=== PATIENT | female | born 1980 | race Caucasian/White ===

== ENCOUNTER → 2016-07-30 | Outpatient (CLI) | payer OTHER ==
[~2016-07-30] MED LIST: CYCL10TA2 PO; FLUT9.9S NS; IBUP-1060 PO; LORA10TA68 PO; MONT10TA9 PO; PROAIR HFA8.5 GM INH; ZOLP5TAB PO
--- NOTE | 2016-07-30 10:12 | KCIC ---
Foot left, three views Indication: Left foot pain and bruising, post fall. Time of exam 9:56 a.m. The metatarsals are intact. The phalanges appear intact. The midfoot and hindfoot are unremarkable apart from a large plantar calcaneal spur. There is some dorsal soft tissue swelling present. Impression: Soft tissue swelling. No acute bony abnormality is detected. Electronically signed by: Reji Conn MD (Jul 30, 2016 10:11:06)
== END | disposition home or self-care (01) ==
LOC: KCIC 09:45
PROVIDERS: ATTEND Nurse Practitioner Family
DX: M79.672 Pain in left foot (principal); S90.32XA Contusion of left foot, initial encounter; W19.XXXA Unspecified fall, initial encounter; Y93.89 Activity, other specified; Y92.89 Other specified places as the place of occurrence of the external cause; Y99.8 Other external cause status
CPT/HCPCS: 73630

== ENCOUNTER → 2016-09-09 | Outpatient (CLI) | payer OTHER ==
[~2016-09-09] MED LIST changes: +CHOL10007 PO; +IOHEXOL 180 MG/ML 10 ML VIAL. ONE; +MULT-208 PO; +methylPREDNISolone ACETATE 40 MG/ML VIAL. ONE; +methylPREDNISolone ACETATE 80 MG/ML VIAL. ONE
--- NOTE | 2016-09-10 03:31 | PAIN ---
DATE OF SERVICE: 09/09/2016 PROGRESS NOTE FOR PAIN CLINIC DIAGNOSES: Lumbar radiculopathy with lumbar herniated disk. HISTORY OF PRESENT ILLNESS: The patient is a 36-year-old female, who returns for followup, last seen on 11/2015. The patient did very well after 2 lumbar epidural steroid injections about ____ improvement. The patient reports that the pain has been returning now for few months. She has been putting off having any treatment done, but is becoming more and more painful as she fell down some stairs, landed on her left hip on the steps about 2 weeks ago. The patient reports that since that time, she has been dragging her left foot. She has been having more pain, difficulty sleeping at night and returns today for followup. The patient reports the pain 8 on a scale of 10 is worse as least at 5, aching, sharp, dull, shooting radiating constant, stabbing and unbearable at times in the low back, left leg, posterior gluteus, posterior lateral thigh, posterior lower leg to the ankle on the left side and some of the right gluteus and across the low back. The patient reports no new motor or sensory deficits, no new bowel or bladder incontinence, but still significant pain. PHYSICAL EXAMINATION: VITAL SIGNS: The patient's blood pressure is 139/100, pulse 94, respirations 18, temperature is 97.6 degrees Fahrenheit, height is 5 feet 9 inches, weight is 233 pounds. GENERAL: The patient is awake, alert, oriented, appropriate, very pleasant demeanor. HEENT: Head shows normocephalic, atraumatic. Extraocular movements are intact and symmetrical. Oral cavity shows mucous membranes moist and pink. Dentition is intact. NECK: Shows anterior throat supple without palpable lymphadenopathy noted. Swallow reflex is symmetrical. CHEST: Shows normal on inspection. Breath sounds are clear to auscultation bilaterally. HEART: Shows S1 and S2 clear. ABDOMEN: Soft, nontender, nondistended. No palpable organomegaly. No rebound or guarding demonstrated. BACK: The patient's back shows spine grossly in midline. The patient's back shows lumbar paraspinous musculature is symmetrical in appearance without atrophy, hypertrophy. The patient does show some moderate tenderness with palpation only in the lower lumbar distribution bilaterally, but diffusely. No tenderness over the sacrum or sacroiliac regions over the spinous processes. The patient shows good rotation and motion of the lumbar spine, both laterally greater than 10 degrees right and left as well as extension greater than 10 degrees, forward flexion 45 degrees without significant difficulty. LOWER EXTREMITIES: Showed deep tendon reflexes at 2+, patellar 1+, tendo-calcaneus tendons are equal. Motor exam is strong with 5/5 dorsiflexion, extension, quadriceps and hamstring flexion and symmetrical. Options were discussed with the patient and the patient's old chart was reviewed as her current medication regimen updated. Current review of systems updated today as well and will proceed with lumbar epidural steroid injections done very well with these in the past with fluoroscopic guidance. Risks were again discussed including, but not limited to bleeding, infection, possibility of epidural hematoma, subsequent neurologic compromise, dural puncture, headaches, spinal cord and/or nerve damage, side effects of steroid medication and poor results regarding pain control. The patient understands and wishes to proceed. The patient will return to clinic in approximately 2 weeks for followup, was counseled on return appointment, activity level and side effects to be aware of. DIAGNOSES: Lumbar radiculopathy with lumbar herniated disk. PROCEDURE: Lumbar epidural steroid injection in translaminar approach to the L5-S1 level using C-arm fluoroscopic guidance under sterile prep and drape using local anesthetic. MEDICATION INJECTED: Depo-Medrol 120 mg plus 10 mL of preservative-free normal saline and 2 mL of Isovue for contrast. CONDITION AT DISCHARGE: Stable. The patient tolerated procedure well, had no complications. BRAD DE LA GARZA MD DR: DIPAK/liliane JOB#: [id number] / [id number]
== END | disposition home or self-care (01) ==
LOC: PNCL 11:26
PROVIDERS: ATTEND Anesthesiology
DX: M51.16 Intervertebral disc disorders with radiculopathy, lumbar region (principal)
CPT/HCPCS: 62323; J1030; J1040

== ENCOUNTER → 2016-12-17 | Outpatient (CLI) | payer OTHER ==
[~2016-12-17] MED LIST changes: +CHOL100014 PO; -CHOL10007 PO
--- NOTE | 2016-12-18 06:06 | PAIN ---
DATE OF SERVICE: 12/17/2016 PROGRESS NOTE FOR PAIN CLINIC DIAGNOSIS: Lumbar radiculopathy with lumbar herniated disk. HISTORY OF PRESENT ILLNESS: The patient is a 36-year-old female who returns for followup status post lumbar epidural steroid ejection x 1 on 09/09/2016. The patient did very well, about 75% improvement as she had done previously about a year before that. The patient reports the pain is beginning to return now over the past several weeks, increasing in the low back, left lower extremity, radiating to the posterior gluteus, posterior thigh, posterior lower legs, on the lateral thigh and some in the anterior aspect of the top of the foot into the toes, only left side, worse with activity, standing, walking, change in positions, has been awakening her from sleep at night, sleeps about 4 hours before she is wakened up, especially when she lies on her left side, has to reposition or get out of bed or change positions to get back to sleep. The patient reports the pain is constant, unbearable at times, sharp, tight, shooting, worse when she is on her feet, walking, standing ____, worst is an 8 on a scale of 10, least at a 4, is currently a 7 on a scale of 10 today. The patient reports no new motor or sensory deficits. No new bowel or bladder incontinence or other complaints. The patient is considering a second opinion regarding her back. She does have a lumbar herniated disk at L5-S1. PHYSICAL EXAMINATION: VITAL SIGNS: Today, the patient's blood pressure is 139/88, pulse 107, respirations 20, temperature is 98.0 degrees Fahrenheit, height is 5 feet 9 inches, weight is 233 pounds. GENERAL: The patient is awake, alert, oriented, appropriate. Very pleasant demeanor. HEENT: Shows normocephalic, atraumatic. Extraocular movements are intact and symmetrical. Oral cavity, mucous membranes are moist and pink. Dentition is intact. NECK: Shows anterior throat supple without palpable lymphadenopathy noted. Swallow reflex is symmetrical. CHEST: Shows normal on inspection. Breath sounds are clear to auscultation bilaterally. HEART: Shows S1, S2 clear. ABDOMEN: Soft, nontender, nondistended. No palpable organomegaly is noted. No rebound or guarding demonstrated. BACK: Shows spine grossly in the midline. Lumbar paraspinous muscle shows some moderate tenderness with palpation, but only diffusely so. The patient shows good rotational motion of the lumbar spine both laterally as well as extension and flexion without difficulty. EXTREMITIES: The patient's lower extremities show deep tendon reflexes at 2+ in the patellar, 1+ tendo calcaneus tendons, are equal. Motor exam is strong with 5/5 dorsiflexion, extension, quadriceps and hamstring flexion and are symmetrical as well. The patient's peripheral pulses are 1+ posterior tibial and dorsalis pedis pulses. No peripheral edema is noted. No clubbing or cyanosis. PLAN: Options were discussed with the patient. The patient's old chart was reviewed as was her current medication regimen and updated. Current review of systems updated today as well and we will proceed with lumbar epidural steroid injection today with fluoroscopic guidance. Risks were again discussed including, but not limited to bleeding, infection, possibility of epidural hematoma and subsequent neurological compromise, dural puncture, headaches, spinal cord and/or nerve damage, side effects of steroid medication and poor results regarding pain control. The patient understands and wishes to proceed. The patient will return to the clinic in approximately 2 weeks for followup, was counseled as to her return appointment, activity level and side effects to be aware of. DIAGNOSIS: Lumbar radiculopathy with lumbar herniated disk. PROCEDURE: Lumbar epidural steroid injection in a translaminar approach at the L5-S1 level using C-arm fluoroscopic guidance under sterile prep and drape using local anesthetic. MEDICATIONS INJECTED: A total of 120 mg Depo-Medrol plus 10 mL preservative-free normal saline and 2 mL Isovue for contrast. CONDITION ON DISCHARGE: Stable. The patient tolerated the procedure well, had no complications. BRAD DE LA GARZA MD DR: DIPAK/liliane JOB#: [id number] / [id number]
== END | disposition home or self-care (01) ==
LOC: PNCL 13:40
PROVIDERS: ATTEND Anesthesiology
DX: M51.16 Intervertebral disc disorders with radiculopathy, lumbar region (principal); Z88.1 Allergy status to other antibiotic agents
CPT/HCPCS: 62323; J1030; J1040

== ENCOUNTER → 2017-02-17 | Outpatient (CLI) | payer OTHER ==
--- NOTE | 2017-02-18 00:41 | PAIN ---
DATE OF SERVICE: 02/17/2017 PROGRESS NOTE FOR PAIN CLINIC DIAGNOSIS: Lumbar radiculopathy with lumbar herniated disk. HISTORY OF PRESENT ILLNESS: The patient is a 36-year-old female who returns for followup status post lumbar epidural steroid injection x2, last seen on 12/17/2016. The patient reports near 100% improvement until the last week or so when the pain began to return in the low back, bilateral lower extremities, and again worse on the right than the left, mostly posterior gluteus, posterior thigh radiating to the posterior leg and calf. The patient reports it is a 9 on a scale of 10 at its worst, 7 on average, about a 4 at its least, and is a 4 today. The patient reports it is an aching, sharp, tight, shooting, stabbing, it is a constant radiating pain, and can be unbearable at times recently. The patient reports it has awakened her from sleep occasionally, but she sleeps about 4 hours at a time. She can reposition, get out of bed, take pain medication, and she is able to get back to sleep. The patient reports no new motor or sensory deficits, no new bowel or bladder incontinence, or other complaints. PHYSICAL EXAMINATION: VITAL SIGNS: The patient's blood pressure 137/89, pulse 81, respirations 18, temperature 98.1 degrees Fahrenheit. Height is 5 feet 9 inches, weight is 242 pounds. GENERAL: The patient is awake, alert, oriented, appropriate, very pleasant demeanor. HEENT: Head shows normocephalic, atraumatic. Extraocular movements are intact and symmetrical. Oral cavity shows mucous membranes moist and pink. Dentition is intact. NECK: Shows anterior throat supple. Swallow reflex is symmetrical. CHEST: Normal on inspection. Breath sounds clear to auscultation bilaterally. HEART: S1, S2 clear. ABDOMEN: Obese, soft, nontender, and nondistended. BACK: Shows spine grossly midline and normal-appearing thoracic and lordotic curvatures. The lumbar paraspinous muscles show some [id number] tenderness with palpation in the lower lumbar distribution and diffusely in the paraspinous muscles only without radiation. The patient has full rotational motion of the lumbar spine both laterally as well as with extension and flexion without significant difficulty. The lower extremities show deep tendon reflexes are 2+ in the patellar, and 1+ tendo calcaneus tendons and equal. Motor exam is strong with 5/5 dorsiflexion, extension, quadriceps and hamstring flexion, and equal bilaterally. Peripheral pulses are 1+ posterior tibial. No edema is noted. Options were discussed with the patient. The patient's old chart was reviewed as was her current medication regimen and updated. Current review of systems is updated today as well. We will proceed with a third in this series of lumbar epidural steroid injections under fluoroscopic guidance. Risks were again discussed including, but not limited to bleeding, infection, possibility of epidural hematoma, subsequent neurologic compromise, dural puncture headaches, spinal cord and/or nerve damage, side effects of steroid medication and poor results regarding pain control. The patient understands and wishes to proceed. The patient will return to clinic in approximately 2 weeks for followup, was counseled on return appointment, activity level, and side effects to be aware of. I also discussed rechecking an MRI scan as her symptoms are persistent and returning, although she does well for several months. As they do return with time with significant radicular qualities, we will order a new MRI scan as her old one was over a year ago with a significant disk herniation at L5-S1 demonstrated on that film. The patient was counseled on activity level as well as side effects to be aware of as well as cautioned with increasing activity. She is doing some yoga exercise as well. We encouraged this to continue. DIAGNOSIS: Lumbar radiculopathy with lumbar herniated disk. PROCEDURE: Lumbar epidural steroid injection, translaminar approach at the L5-S1 level using C-arm fluoroscopic guidance under sterile prep and drape using local anesthetic. MEDICATIONS INJECTED: A total of 120 mg Depo-Medrol plus 10 mL of preservative-free normal saline and 2 mL of Isovue for contrast. CONDITION ON DISCHARGE: Stable. The patient tolerated the procedure well and had no complications. BRAD DE LA GARZA MD DR: DIPAK/liliane JOB#: [id number] / [id number]
== END | disposition home or self-care (01) ==
LOC: PNCL 08:57
PROVIDERS: ATTEND Anesthesiology
DX: M51.16 Intervertebral disc disorders with radiculopathy, lumbar region (principal); Z88.1 Allergy status to other antibiotic agents
CPT/HCPCS: 62323; J1030; J1040

== ENCOUNTER → 2017-04-27 | Outpatient (CLI) | payer OTHER ==
[~2017-04-27] MED LIST changes: -IOHEXOL 180 MG/ML 10 ML VIAL. ONE; -methylPREDNISolone ACETATE 40 MG/ML VIAL. ONE; -methylPREDNISolone ACETATE 80 MG/ML VIAL. ONE
--- NOTE | 2017-04-27 11:43 | RAD ---
MRI of the lumbar spine without contrast CLINICAL HISTORY: Low back pain which radiates down the right leg. TECHNIQUE: Unenhanced T1-weighted and T2-weighted sagittal and axial and inversion sagittal images of the lumbar spine were obtained. FINDINGS: Comparison study is dated 11/13/2015. Very mild S-shaped curvature of the thoracolumbar spine is seen. Degenerative signal changes and loss of height are seen involving the L5-S1 disc. Degenerative signal changes are seen within the marrow surrounding this disc. The conus medullaris is normal morphology, position, and signal characteristics. The L1-2, L2-3 and L3-4 disc spaces are within normal limits. At L4-5 disc space there is a minimal generalized disc bulge. Degenerative changes are seen involving the facet joints bilaterally. These findings do not result in significant central spinal canal or neural foraminal stenosis. At the L5-S1 disc space there is a mild to moderate generalized disc bulge. Degenerative changes are seen involving the facet joints bilaterally. There is mild ligamentum flavum hypertrophy bilaterally. The large central disc herniation seen on the previous examination has resolved. The central spinal canal stenosis seen on previous examination has resolved. No neural foraminal stenosis is seen. IMPRESSION: The changes of degenerative disc disease are seen involving the lower lumbar spine. These findings do not result in significant central spinal canal or neural foraminal stenosis. The disc herniation seen at L5-S1 on the previous examination has resolved. Electronically signed by: Gonzalo Peoples MD (04/27/2017 11:40 AM) [email or web address]
== END | disposition home or self-care (01) ==
LOC: MRI 08:59
PROVIDERS: ATTEND Anesthesiology
DX: M51.36 Other intervertebral disc degeneration, lumbar region (principal); Z88.1 Allergy status to other antibiotic agents
CPT/HCPCS: 72148

== ENCOUNTER → 2017-04-29 | Outpatient (CLI) | payer OTHER ==
--- NOTE | 2017-04-29 11:12 | PAIN ---
DATE OF SERVICE: 04/29/2017 DIAGNOSES: Lumbar radiculopathy with lumbar herniated disk. HISTORY OF PRESENT ILLNESS: The patient is a 36-year-old female who returns for followup status post lumbar epidural steroid injections, last seen on 02/17/2017. She did very well with the injections for about 2 weeks each time, reports the pain was still fairly significant. She had gotten 2 surgical opinions for surgery and then had waited some time, got a new MRI scan ordered on 04/27/2017 as the pain was resolving to some extent, especially in the right leg was not nearly as significant, but still some pain in the low back, which was moderate. MRI scan was discussed with the patient today showing disk herniation seen at L5-S1 on previous examination from 2016 has completely resolved. There is a small bulging at the level of the L5-S1 disk now as well as some minimal generalized disk bulge at L4-L5 as well. The patient reports that her pain is significantly improved, but still persistent with radiating constant, stabbing, shooting, sharp, aching alternating pain; rated an 8 on a scale of 10 as worse, 3 at its least and 5 on average and is 3 today. The patient reports it does not bother her when she is sitting or lying down. It is worse with standing, walking, changing positions. She sleeps well at night, does not awaken her from sleep, sleeps about 8 hours at a time. The patient reports no new motor or sensory deficits, no new bowel or bladder incontinence, no other injuries or accidents since last seen. PHYSICAL EXAMINATION: VITAL SIGNS: Today, the patient's blood pressure is 136/95, pulse 90, respirations 18, temperature is 98.1 degrees Fahrenheit, height is 5 feet 9 inches, weight is 242 pounds. GENERAL: The patient is awake, alert, oriented, appropriate, has very pleasant demeanor. HEENT: Shows normocephalic, atraumatic. Extraocular movements are intact and symmetrical. Oral cavity: Mucous membranes moist and pink. Dentition is intact. NECK: Shows anterior throat supple without palpable lymphadenopathy noted. Swallow reflex is symmetrical. CHEST: Normal on inspection. Breath sounds are clear to auscultation bilaterally. HEART: Shows S1, S2 clear. ABDOMEN: Soft, nontender, nondistended. No palpable organomegaly. No rebound or guarding demonstrated. BACK: Shows spine grossly midline. Normal-appearing thoracic kyphosis and lumbar lordotic curvature. Lumbar paraspinous muscle shows symmetrical with inspection. On palpation, it shows only a very mild diffuse tenderness bilaterally in the lumbar distribution without tenderness over the sacrum or sacroiliac regions. The patient has good rotation of motion both laterally as well as extension and flexion without difficulty of the lumbar spine. EXTREMITIES: Lower extremities show deep tendon reflexes 2+ in patella, 1+ tendo-calcaneus tendons. Motor exam is strong with 5/5 dorsiflexion, extension, quadriceps and hamstring flexion and equal. Peripheral pulses are 2+ posterior tibial. No peripheral edema is noted. Options were discussed with the patient. The patient's old chart was reviewed. Her current medication regimen updated. Current review of systems updated today as well and we will order physical therapy with strengthening and stretching exercises as well as core strengthening exercises. Also try Medrol Dosepak, the patient was given instruction as well as side effects to be aware with the medication. The patient will follow up in approximately 4 weeks or as necessary once physical therapy has begun. BRAD DE LA GARZA MD DR: DIPAK/liliane JOB#: [id number] / [id number]
== END | disposition home or self-care (01) ==
LOC: PNCL 08:57
PROVIDERS: ATTEND Anesthesiology
DX: M51.16 Intervertebral disc disorders with radiculopathy, lumbar region (principal); K46.9 Unspecified abdominal hernia without obstruction or gangrene
CPT/HCPCS: 99212

== ENCOUNTER → 2019-02-02 | Outpatient (CLI) | payer OTHER ==
[2018-12-06 19:30] VITALS: BP 113/76
[~2019-02-02] MED LIST changes: +ALBU2.5V8 INH; +MONT10TA49 PO; -MONT10TA9 PO; +OXYC1TAB15 PO; -PROAIR HFA8.5 GM INH
--- NOTE | 2019-02-03 10:26 | KCIC ---
THYROID ULTRASOUND History: Thyroid nodules Comparison: October 22, 2015 Findings: Multiple sonographic images of the thyroid gland are submitted. Right lobe measured 4.6 x 1.8 x 1.4 seen. Left lobe measured 5.3 x 1.7 x 1.1 cm. Isthmus measured 0.2 cm in thickness. There is again somewhat heterogeneous solid nodule with internal vascularity of the inferior left gland about 0.5 x 0.3 x 0.4 cm versus previously about 0.4 x 0.3 x 0.2 cm. There is a tiny nodule of the mid right gland about 0.3 cm greatest dimension, no significant internal vascularity on color Doppler imaging. There is a small solid-appearing nodule of the superior right gland up to 0.5 cm in all planes, not associated with significant internal hypervascularity. Impression: 1. There are small bilateral thyroid nodules. Nodule of the inferior left gland is very slightly larger than 2016 exam. The 2 avascular small nodules on the right were not demonstrated previously. Electronically signed by: Josep Cespedes MD (02/03/2019 10:23 AM) [id number]
== END | disposition home or self-care (01) ==
LOC: KCIC US 09:59
PROVIDERS: ATTEND Family Medicine
DX: E04.2 Nontoxic multinodular goiter (principal)
CPT/HCPCS: 76536

== ENCOUNTER 2019-03-15 11:17 | Observation (INO) | payer OTHER ==
[2018-12-06 19:30] VITALS: BP 113/76
[2019-03-15] MEDS ORDERED: IV NORMAL SALINE 1000ML BAG 1,000 ML IV SCH (11:21)
== END 2019-03-15 13:22 | disposition home or self-care (01) ==
LOC: 3 SO LND 11:17
PROVIDERS: ADMIT Obstetrics & Gynecology; ATTEND Obstetrics & Gynecology
DX: Z34.80 Encounter for supervision of other normal pregnancy, unspecified trimester (principal); Z3A.00 Weeks of gestation of pregnancy not specified
CPT/HCPCS: G0378; G0379; 59025

== ENCOUNTER → 2019-03-15 | Outpatient (CLI) | payer OTHER ==
[2018-12-06 19:30] VITALS: BP 113/76
--- NOTE | 2019-03-15 13:12 | RAD ---
EXAM: OBSTETRIC ULTRASOUND WITH BIOPHYSICAL PROFILE. HISTORY: Twin gestation. COMPARISON: 12/06/2018. FINDINGS: Sonographic evaluation of the uterus, fetuses and maternal pelvis was performed with biophysical profile. There is a dichorionic, diamniotic twin gestation. Fetus A: Presentation is breech. heart rate is 141 bpm. Estimated gestational age based on measurements is 28 weeks 2 days. Biparietal diameter, head circumference, abdominal circumference and femur length are commensurate. Estimated weight is 1136 g. The placenta is posterior. There is no evidence of placenta previa. Amniotic fluid volume appears visually normal with amniotic fluid index at least 5.4 cm. Biophysical profile score: 8/8. breathin. tone: 2. movement: 2. Amniotic fluid volume: 2. Fetus B: Presentation is vertex. heart rate is 147 bpm. Estimated gestational age based on measurements is 30 weeks 0 days. Biparietal diameter, head circumference, abdominal circumference and femur length are commensurate. Estimated weight is 1393 g. The placenta is anterior. There is no evidence of placenta previa. Amniotic fluid volume appears visually normal with amniotic fluid index at least 3.2 cm. Biophysical profile score: 8/8. breathin. tone: 2. movement: 2. Amniotic fluid volume: 2. The maternal adnexa are obscured by positioning currently. IMPRESSION: 1. Fetus A biophysical profile score: 8/8. Estimated gestational age based on measurements is 28 weeks 2 days. This lags fetus B at 30 weeks 0 days. 2. Fetus B biophysical profile score: 8/8. Electronically signed by: Heydi Nava MD (03/15/2019 1:09 PM) [facility]
== END | disposition home or self-care (01) ==
LOC: US 11:08
PROVIDERS: ATTEND Obstetrics & Gynecology
DX: O30.043 Twin pregnancy, dichorionic/diamniotic, third trimester (principal); O32.1XX0 Maternal care for breech presentation, not applicable or unspecified; O24.419 Gestational diabetes mellitus in pregnancy, unspecified control; Z3A.28 28 weeks gestation of pregnancy; Z3A.30 30 weeks gestation of pregnancy
CPT/HCPCS: 76815; 76819

== ENCOUNTER 2019-03-21 08:56 | Observation (INO) | payer OTHER ==
[2018-12-06 19:30] VITALS: BP 113/76
--- NOTE | 2019-03-21 17:46 | RAD ---
BIOPHYSICAL PROFILE BABY A: Clinical indications: Twins. Maternal abdominal pain. Findings: A single intrauterine is present in the cephalic position. heart rate is 149. breathing movements: 2. motion: 2. tone: 2. Amniotic fluid volume: 2. Therefore, the biophysical profile score is 8 out of 8. SAY using the 4 quadrant method is 10.9 cm. IMPRESSION: Biophysical profile score is 8 out of 8. BIOPHYSICAL PROFILE BABY B: Clinical indications: Same. Findings: A single intrauterine is present in the cephalic position. heart rate is 153. breathing movements: 2. motion: 2. tone: 2. Amniotic fluid volume: 2. Therefore, the biophysical profile score is 8 out of 8. SAY using the 4 quadrant method is 10.9 cm. IMPRESSION: Biophysical profile score is 8 out of 8. Electronically signed by: Wilfredo Polk MD (03/21/2019 5:43 PM) [email or web address]
--- NOTE | 2019-03-21 18:01 | RAD ---
Limited OB ultrasound study Clinical indications: Twins. Maternal abdominal pain. COMPARISON: March 15, 2019. A twin gestation is present. BABY A FINDINGS: Cephalic position. heart rate is 149 beats per minute. BPD is 7.5 cm which equals 30 weeks 1 days. HC is 28.16 cm which equals 30 weeks 6 days. AC is 24.43 cm which equals 28 weeks 5 days. FL is 5.74 cm which equals 30 weeks 1 day. Average gestational age by ultrasound is 30 weeks 0 days +/- 3 weeks with an EDC of May 30, 2019. EDC on the previous study was June 05, 2019. Therefore, there has been normal interval growth. Estimated weight is 3 lbs and 1 oz. Baby A placenta located posteriorly and grade 0 in appearance. The anatomy was not evaluated. BABY B FINDINGS: Cephalic position. heart rate is 153 beats per minute. BPD is 7.39 cm which equals 29 weeks 5 days. HC is 28.47 cm which equals 31 weeks 2 days. AC is 26.56 cm which equals 30 weeks 5 days. FL is 6.02 cm which equals 31 weeks 2 days. Average gestational age by ultrasound is 30 weeks 5 days +/- 3 weeks with an EDC of May 25, 2019. EDC on the prior study was May 24, 2019. Therefore, there has been normal interval growth. Estimated weight is 3 lbs and 10 oz. Baby B placenta is anterior in location and grade 0 in appearance The anatomy was not evaluated. SAY using the four quadrant method is 10.9 cm. Cervical length is 4.4 cm. The maternal ovaries are not visualized. Impression: Twin gestation with normal interval growth. Electronically signed by: Wilfredo Polk MD (03/21/2019 5:58 PM) [email or web address]
== END 2019-03-21 10:52 | disposition home or self-care (01) ==
LOC: 3 SO LND 08:56
PROVIDERS: ADMIT Obstetrics & Gynecology; ATTEND Obstetrics & Gynecology
DX: O30.003 Twin pregnancy, unspecified number of placenta and unspecified number of amniotic sacs, third trimester (principal); Z3A.29 29 weeks gestation of pregnancy
CPT/HCPCS: 76815; 76819; G0378; G0379; 59025

== ENCOUNTER 2019-03-27 14:28 | Observation (INO) | payer OTHER ==
[2018-12-06 19:30] VITALS: BP 113/76
[2019-03-27] MEDS ORDERED: IV RINGERS,LACTATED 1000ML 1,000 ML IV PRN (14:45)
[2019-03-27 15:22] LABS: BILIRUBIN,URINE NEGATIVE (NEG); CLARITY,URINE CLEAR; COLOR,URINE YELLOW; NITRITE,URINE NEGATIVE (NEG); PROTEIN,URINE NEGATIVE (NEG-TRACE); UROBILINOGEN,URINE 0.2 mg/dL (0.2 mg/dL)
[2019-03-27 15:51] LABS: BACTERIA,URINE MODERATE /HPF (0-FEW); RBC,URINE 0 /HPF (0-2); SQUAMOUS EPITHELIAL CELL,UR OCC /LPF
[2019-03-27 16:07] LABS: BASO % 0 % (0-3); EOS # 0.1 x10^3/uL (0.0-0.7); EOS % 1 % (0-3); HEMATOCRIT 25.7 % (36.0-47.0); HEMOGLOBIN 8.6 g/dL (12.0-15.5); LYMPH # 1.5 x10^3/uL (1.0-4.8); LYMPH % 13 % (24-48); MEAN CORPUSCULAR HEMOGLOBIN 28 pg (25-35); MEAN CORPUSCULAR HGB CONC 34 g/dL (31-37); MEAN CORPUSCULAR VOLUME 84 fL (79-100); MONO # 0.9 x10^3/uL (0.0-1.1); MONO % 8 % (0-9); NEUT % 78 % (31-73); PLATELET COUNT 235 x10^3/uL (140-400); RED BLOOD COUNT 3.07 x10^6/uL (3.50-5.40); RED CELL DISTRIBUTION WIDTH 14.3 % (11.5-14.5); WHITE BLOOD COUNT 11.5 x10^3/uL (4.0-11.0)
[2019-03-27 16:23] LABS: CREATININE,RANDOM URINE 165.5 mg/dL (Not Establ.)
--- NOTE | 2019-03-27 16:28 | RAD ---
EXAM: biophysical profile. HISTORY: -induced hypertension. TECHNIQUE: Sonographic imaging of a gravid uterus was performed. COMPARISON: 03/21/2019. FINDINGS: There is a twin dichorionic-diamniotic intrauterine . The twin A is in cephalic presentation on the maternal right with a normal heart rate of 150 bpm. There is a posterior placenta without evidence of placenta previa. There is normal body motion, tone, and breathing motion. There is a normal amniotic fluid index of 10.1 cm. This corresponds with a twin a biophysical profile of 8/8. The estimated gestational age of twin A based on ultrasound measurements is 31 weeks and 0 days with a due date of 05/29/2019 and weight of 3 pounds and 12 ounces. The twin B is in cephalic presentation on the maternal left with a normal heart rate of 163 bpm. There is and anterior placenta without evidence of placenta previa. There is normal body motion, tone and breathing motion. There is a normal amniotic fluid index of 0.1 Cm. This Corresponds with a Twin B biophysical profile of 8/8. The estimated gestational age of twin B based on ultrasound measurements is 31 weeks and 6 days with a due date of 05/23/2019 and weight of 4 pounds and 6 ounces. IMPRESSION: 1. Twin dichorionic-diamniotic with normal heart rate and gestational ages is described above. 2. Normal biophysical profile of 8/8 for both twins. Electronically signed by: Jenn Bains MD (03/27/2019 4:26 PM) [id number]
[2019-03-27 16:29] LABS: ALBUMIN 2.2 g/dL (3.4-5.0); ALBUMIN/GLOBULIN RATIO 0.5 (1.0-1.7); CALCIUM 8.7 mg/dL (8.5-10.1); CREATININE 0.6 mg/dL (0.6-1.0); GFR 111.9; POTASSIUM 3.7 mmol/L (3.5-5.1); TOTAL PROTEIN 6.3 g/dL (6.4-8.2)
[2019-03-27] MEDS ORDERED: ACETAMINOPHEN 500 MG TABLET PO PRN (16:30)
[2019-03-27 16:50] LABS: INFLUENZA A PATIENT NEGATIVE (NEGATIVE); INFLUENZA B PATIENT NEGATIVE (NEGATIVE)
== END 2019-03-27 19:00 | disposition home or self-care (01) ==
LOC: 3 SO LND 14:28
PROVIDERS: ADMIT Obstetrics & Gynecology; ATTEND Obstetrics & Gynecology
DX: O21.2 Late vomiting of pregnancy (principal); O26.893 Other specified pregnancy related conditions, third trimester; O13.3 Gestational [pregnancy-induced] hypertension without significant proteinuria, third trimester; R51 Headache; Z3A.30 30 weeks gestation of pregnancy
CPT/HCPCS: 36415; 76819; 80053; 81001; 82570; 84156; 85025; 87086; 87804; 96360; 96361; G0378; G0379; J7120

== ENCOUNTER 2019-04-05 09:41 | Observation (INO) | payer OTHER ==
[2018-12-06 19:30] VITALS: BP 113/76
[2019-04-05] MEDS ORDERED: IV RINGERS,LACTATED 1000ML 1,000 ML IV SCH (09:53)
--- NOTE | 2019-04-05 12:06 | RAD ---
Examination: BIOPHYS PROFILE W/O NON STRESS History: Twin gestation Comparison/Correlation: 03/27/2019 biophysical profile Findings: Twin intrauterine gestation noted. Baby A has a biophysical profile score of 8/8. heart rate is 150 bpm. Posterior located placenta is noted. Amniotic fluid index is 12.2. Cephalic lie is evident. Baby B has a biophysical profile score of 8/8. heart rate is 139 bpm. Anteriorly located placenta is present. Breech spine noted. Amniotic fluid index is 12.2 cm. Impression: Normal biophysical profile score. Twin intrauterine gestation. Breech lie of baby B. Electronically signed by: Raphael Robison MD (04/05/2019 12:03 PM) [facility]
== END 2019-04-05 11:10 | disposition home or self-care (01) ==
LOC: 3 SO LND 09:41
PROVIDERS: ADMIT Obstetrics & Gynecology; ATTEND Obstetrics & Gynecology
DX: O30.003 Twin pregnancy, unspecified number of placenta and unspecified number of amniotic sacs, third trimester (principal); Z3A.31 31 weeks gestation of pregnancy
CPT/HCPCS: 76819; G0379; 59025

== ENCOUNTER 2019-04-11 10:05 | Observation (INO) | payer OTHER ==
[2018-12-06 19:30] VITALS: BP 113/76
[2019-04-11] MEDS ORDERED: ONDANSETRON ODT 4 MG TAB.RAPDIS. PO ONE (10:30)
[2019-04-11 11:08] LABS: BASO % 0 % (0-3); EOS % 0 % (0-3); HEMATOCRIT 27.3 % (36.0-47.0); HEMOGLOBIN 9.2 g/dL (12.0-15.5); LYMPH # 1.2 x10^3/uL (1.0-4.8); LYMPH % 13 % (24-48); MEAN CORPUSCULAR HEMOGLOBIN 27 pg (25-35); MEAN CORPUSCULAR HGB CONC 34 g/dL (31-37); MEAN CORPUSCULAR VOLUME 82 fL (79-100); MONO # 0.7 x10^3/uL (0.0-1.1); MONO % 8 % (0-9); NEUT # 7.6 x10^3/uL (1.8-7.7); NEUT % 79 % (31-73); PLATELET COUNT 237 x10^3/uL (140-400); RED BLOOD COUNT 3.35 x10^6/uL (3.50-5.40); RED CELL DISTRIBUTION WIDTH 15.1 % (11.5-14.5); WHITE BLOOD COUNT 9.5 x10^3/uL (4.0-11.0)
[2019-04-11 11:24] LABS: ALBUMIN 2.5 g/dL (3.4-5.0); ALBUMIN/GLOBULIN RATIO 0.6 (1.0-1.7); CALCIUM 9.3 mg/dL (8.5-10.1); CREATININE 0.7 mg/dL (0.6-1.0); GFR 93.6; POTASSIUM 3.9 mmol/L (3.5-5.1); TOTAL BILIRUBIN 1.1 mg/dL (0.2-1.0); TOTAL PROTEIN 6.9 g/dL (6.4-8.2)
[2019-04-11 11:55] LABS: CREATININE,RANDOM URINE 224.8 mg/dL (Not Establ.)
--- NOTE | 2019-04-11 16:16 | RAD ---
EXAM: OBSTETRIC ULTRASOUND WITH BIOPHYSICAL PROFILE. HISTORY: Twin gestation. COMPARISON: 04/05/2019. FINDINGS: Sonographic evaluation of the uterus, fetuses and maternal pelvis was performed with biophysical profile. There is a is dichorionic, diamniotic twin gestation. Twin A is on maternal left in vertex presentation. heart rate is 137 bpm. The placenta is posterior. There is no evidence of placenta previa. Amniotic fluid volume appears normal with amniotic fluid index 19.4 cm. Biophysical profile score: 8/8. breathin. tone: 2. movement: 2. Amniotic fluid volume: 2. Twin B is on maternal right in vertex presentation. heart rate is 143 bpm. The placenta is anterior. There is no evidence of placenta previa. Amniotic fluid volume appears normal with amniotic fluid index 19.4 cm. Biophysical profile score: 8/8. breathin. tone: 2. movement: 2. Amniotic fluid volume: 2. The maternal adnexa are obscured by positioning currently. IMPRESSION: 1. Twin A biophysical profile score: 8/8. heart rate 137 bpm. 2. Twin B biophysical profile score: 8/8. heart rate 143 bpm. Electronically signed by: Heydi Nava MD (04/11/2019 4:14 PM) [facility]
== END 2019-04-11 12:15 | disposition home or self-care (01) ==
LOC: 3 SO LND 10:05
PROVIDERS: ADMIT Obstetrics & Gynecology; ATTEND Obstetrics & Gynecology
DX: O30.003 Twin pregnancy, unspecified number of placenta and unspecified number of amniotic sacs, third trimester (principal); O24.419 Gestational diabetes mellitus in pregnancy, unspecified control; O09.523 Supervision of elderly multigravida, third trimester; O26.893 Other specified pregnancy related conditions, third trimester; R10.9 Unspecified abdominal pain; Z3A.32 32 weeks gestation of pregnancy
CPT/HCPCS: 36415; 76819; 80053; 82570; 84156; 85025; G0378; G0379; Q0162; 59025

== ENCOUNTER 2019-04-12 12:02 | Observation (INO) | payer OTHER ==
[2018-12-06 19:30] VITALS: BP 113/76
[2019-04-12] MEDS ORDERED: BUTALB/APAP/CAFEIN 50/325/40MG TABLET. PO PRN (12:15)
[2019-04-12] MEDS ORDERED: IV RINGERS,LACTATED 1000ML 1,000 ML IV PRN (12:15)
[2019-04-12 12:55] LABS: BILIRUBIN,URINE NEGATIVE (NEG); CLARITY,URINE CLEAR; COLOR,URINE YELLOW; NITRITE,URINE NEGATIVE (NEG); PROTEIN,URINE NEGATIVE (NEG-TRACE); UROBILINOGEN,URINE 0.2 mg/dL (0.2 mg/dL)
[2019-04-12 12:56] LABS: BASO % 0 % (0-3); EOS % 0 % (0-3); HEMATOCRIT 26.7 % (36.0-47.0); HEMOGLOBIN 8.9 g/dL (12.0-15.5); LYMPH # 1.3 x10^3/uL (1.0-4.8); LYMPH % 14 % (24-48); MEAN CORPUSCULAR HEMOGLOBIN 27 pg (25-35); MEAN CORPUSCULAR HGB CONC 33 g/dL (31-37); MEAN CORPUSCULAR VOLUME 82 fL (79-100); MONO # 0.8 x10^3/uL (0.0-1.1); MONO % 9 % (0-9); NEUT # 7.1 x10^3/uL (1.8-7.7); NEUT % 76 % (31-73); PLATELET COUNT 254 x10^3/uL (140-400); RED BLOOD COUNT 3.27 x10^6/uL (3.50-5.40); WHITE BLOOD COUNT 9.3 x10^3/uL (4.0-11.0)
[2019-04-12 12:59] LABS: CREATININE,RANDOM URINE 138.5 mg/dL (Not Establ.)
[2019-04-12 13:06] LABS: SQUAMOUS EPITHELIAL CELL,UR MOD /LPF
[2019-04-12 13:08] LABS: BACTERIA,URINE FEW /HPF (0-FEW); RBC,URINE OCC /HPF (0-2)
[2019-04-12 13:25] LABS: CALCIUM 9.4 mg/dL (8.5-10.1); CREATININE 0.8 mg/dL (0.6-1.0); GFR 80.3; POTASSIUM 4.2 mmol/L (3.5-5.1)
[2019-04-12 13:29] LABS: ALBUMIN 2.5 g/dL (3.4-5.0); ALBUMIN/GLOBULIN RATIO 0.6 (1.0-1.7); TOTAL BILIRUBIN 1.1 mg/dL (0.2-1.0); TOTAL PROTEIN 6.9 g/dL (6.4-8.2); URIC ACID 6.3 mg/dL (2.6-6.0)
[2019-04-12] MEDS ORDERED: diphenhydrAMINE HCL 25 MG CAPSULE PO PRN (16:00)
[2019-04-12] MEDS ORDERED: CALCIUM CARBONATE 500 MG TAB.CHEW PO PRN (17:00)
[2019-04-12] MEDS ORDERED: BETAMET ACET&NA PHOS 30 MG/5 ML VIAL. IM SCH (17:30)
[2019-04-12] MEDS ORDERED: MAGNESIUM SULFATE 2GM 50 ML IV ONE (17:30)
[2019-04-12] MEDS ORDERED: MAGNESIUM SULFATE 4GM 100 ML IV ONE (17:30)
[2019-04-12] MEDS ORDERED: MAGNESIUM SULFATE 20GM 500 ML IV SCH (17:30)
--- NOTE | 2019-04-12 17:44 | PDOC1 ---
OB - History Hx of Present Care: Good Care Ultrasounds: Abnormal US findings (Growth discordance) Obstetrical Complications: Gestational Diabetes, Pre-eclampsia Medical Complications: None Past Family/Social History * Past Medical, Surgical, Family and Obstetric Histories reviewed from chart. Rubella: Immune RPR/VDRL: Negative GBS Status: Unknown HBsAG: Negative OB - Chief Complaint & HPI Date of Admission: Date of Admission: Apr 12, 2019 at 12:02 Chief Complaint/History : 4 Para: 3 EGA: 32 Reason for admission: other (preeclampsia, di/di twins, GDM A2) Admission Nurse Assessment Rev: Yes OB - Admission Exam Physical Exam HEENT: Normal Heart: Regular Rate Lungs: Clear Abdomen: Soft Extremities: Edema Reflexes: Normal Cervical Dilatation: None Effacement: 0% Station: Ballotable Membranes: Intact Accelerations: Accelerations Present Decelerations: No decelerations Contractions on Admission: >10 Minutes Apart Text A: 32+3 wks IUP AMA Di/di twins Preeclampsia with headache GDM A2 P: Admit for magnesium sulfate and corticosteroids. Transfer to [facility] for care and need of NICU. REX MORGAN Jr, MD Apr 12, 2019 17:44
[2019-04-12] MEDS ORDERED: FAMOTIDINE 20 MG/2 ML VIAL IVP ONE (18:00)
== END 2019-04-12 18:15 | disposition short-term general hospital (02) ==
LOC: 3 SO LND 12:02
PROVIDERS: ADMIT Obstetrics & Gynecology; ATTEND Obstetrics & Gynecology
DX: O24.419 Gestational diabetes mellitus in pregnancy, unspecified control (principal); O30.043 Twin pregnancy, dichorionic/diamniotic, third trimester; O13.3 Gestational [pregnancy-induced] hypertension without significant proteinuria, third trimester; O09.523 Supervision of elderly multigravida, third trimester; O26.893 Other specified pregnancy related conditions, third trimester; O14.93 Unspecified pre-eclampsia, third trimester; R51 Headache; Z3A.32 32 weeks gestation of pregnancy
CPT/HCPCS: 36415; 80053; 81001; 82570; 82962; 84156; 84550; 85025; 87086; 96365; 96372; G0378; G0379; J0702; J3475; J7120; 59025

== ENCOUNTER → 2020-01-10 | Outpatient (CLI) | payer OTHER ==
[2018-12-06 19:30] VITALS: BP 113/76
--- NOTE | 2020-01-11 08:51 | KCIC ---
EXAM: Left ribs 4 views. HISTORY: Left rib pain. COMPARISON: None. FINDINGS: There are no displaced rib fractures. There is no pneumothorax or pleural effusion. No infiltrates are appreciated and this frontal view. The heart is not enlarged. IMPRESSION: 1. No displaced left rib fractures. Electronically signed by: Heydi Nava MD (01/11/2020 8:49 AM) [id number]
== END | disposition home or self-care (01) ==
LOC: KCIC 11:39
PROVIDERS: ATTEND Nurse Practitioner Family
DX: S20.212A Contusion of left front wall of thorax, initial encounter (principal); X58.XXXA Exposure to other specified factors, initial encounter; Y93.89 Activity, other specified; Y92.89 Other specified places as the place of occurrence of the external cause; Y99.8 Other external cause status
CPT/HCPCS: 71100